=== PATIENT | female | born 1940 | race Caucasian/White ===

== ENCOUNTER 2017-03-04 11:36 | Emergency (ER) | payer OTHER ==
[~2017-03-04] VITALS: Ht 170.2 cm; Wt 81.0 kg
[~2017-03-04 11:36] MED LIST: ACET325T96 PO; ASPEC325 PO; ATOR10TA82 PO; FRRG PO; IBUP-103 PO
[2017-03-04 11:45] VITALS: TEMP 36.7; Ht 170.2 cm; Wt 81.0 kg
[2017-03-04] MEDS ORDERED: ASPI81TA28 PO (11:59)
--- NOTE | 2017-03-04 12:07 | EMERGENCY ROOM VISIT NOTE ---
History Report prepared by Alonso: Paramjit Gamboa Under the Supervision of: Dr. Zachariah Rodriguez M.D. First contact with patient: 11:58 Chief Complaint: NOSE BLEED (MINOR) Stated Complaint: RECURRENT NOSE BLEEDS History of Present Illness The patient is a 77 year old female who presents to the Emergency Room with complaints of a left nostril nose bleed that started around 0415 this morning. She does have a history of nose bleeds, and says she had a really bad one on February 03. The patient presents to the ED with packing in her left nares. The patient was seen at the [facility] ED this morning, and was told to call an ENT doctor, but the ENT could not see the patient for 3 days. The patient was told that she is going to need to be cauterized. She says that she came here because the packing was bothering her. She states that she is not bleeding currently, but there is blood going down her throat. She states that she has never used Afrin before. She denies any recent cold symptoms, but she does note that she is having a bit of discomfort from the pollen outside. The patient takes Aspirin daily. Source of History: patient Onset: 5 this morning Position: nose (left nostril) Quality: other (nose bleed) Timing: other (persistent) Note: Associated symptoms: Denies any recent cold symptoms, but is having discomfort from pollen outside. Review of Systems All systems have been listed, reviewed, and are negative other than those previously mentioned. Please see Additional Medical History Sheet. Past Medical & Surgical Medical Problems: (1) Nasal bleeding Surgical Problems: (1) History of knee replacement (2) Hx of tubal ligation Family History FH: Alzheimer's disease Stroke Social History Smoking Status: Never Smoker Smokeless Tobacco Use: No Alcohol Use: none Marital Status: Housing Status: lives with family Occupation Status: retired Current/Historical Medications Scheduled Aspirin (Aspirin Ec), 81 MG PO DAILY Atorvastatin (Lipitor), 10 MG PO QPM Scheduled PRN Acetaminophen Tab (Tylenol), 650 MG PO Q6 PRN for Pain Ibuprofen Tab (Advil), 400 MG PO DAILY PRN for PRN Allergies Coded Allergies: No Known Drug Allergy (Unverified Allergy, Unknown, NKDA, 01/14/15) Physical Exam Vital Signs Date Time Temp Pulse Resp B/P Pulse Ox O2 Delivery O2 Flow Rate FiO2 03/04/17 13:20 66 16 176/92 96 03/04/17 11:45 36.7 85 18 146/101 95 Room Air Physical Exam GENERAL: Patient awake, alert, oriented x 3. Patient follows commands. Patient does not appear toxic. Patient is adequately hydrated and well- nourished. SKIN: No erythema, pallor, cyanosis or rash HEENT: Normal head, pupils equal, reactive to light and accommodation. Ears normal. Patient had a foam tampon packing in her left nostril that was long term sticking out. It was gently removed and no bleeding was seen. There was a questionable small bleeding site on the Kiesselbach's plexus. No blood in posterior pharynx. Neck: Without adenopathy, no neck vein distention. EXTREMITIES: No signs of trauma. No pedal or pretibial edema. No calf or thigh tenderness. Medical Decision & Procedures Medications Administered Medications (Trade) Dose Ordered Sig/Genevieve Route Start Time Stop Time Status Last Admin Dose Admin Oxymetazoline HCl (Afrin 0.05% Nasal [place]) 1 sprays NOW ONCE NA 03/04/17 12:15 03/04/17 12:16 DC 03/04/17 12:25 1 SPRAYS ED Course 1200: Past medical records reviewed. The patient was evaluated in room C7. A complete history and physical examination was performed. 1215: Ordered Afrin 0.05% Nasal [place] 1 sprays NA. 1310: I reevaluated the patient and she has no current bleeding, and there is no blood in the posterior pharynx. The patient verbally expressed understanding and agreement of the treatment plan. The patient will be discharged. Medical Decision Nurses notes reviewed. Medical history sheet reviewed. Differential diagnosis includes but is not limited to: epistaxis, anemia. The patient had no bleeding while here in the ED but she was given Afrin spray in the left nostril. Small ulcer was noted on Kiesselbach's plexus but it is not bleeding. After a lengthy observation the patient was discharged with no further bleeding. The patient was encouraged to use Afrin again if bleeding resumes. Impression Primary Impression: Epistaxis Scribe Attestation The scribe's documentation has been prepared under my direction and personally reviewed by me in its entirety. I confirm that the note above accurately reflects all work, treatment, procedures, and medical decision making performed by me. Departure Information Dispostion Home / Self-Care Referrals Ken Sebastian M.D. (PCP) Patient Instructions ED [place], My [facility] Additional Instructions 2 puffs of Afrin in the left nostril and use a nasal clip if bleeding resumes. Return here if bleeding continues despite the Afrin. Try not to cough or sneeze or do anything that increases pressure in your head.
[2017-03-04] MEDS ORDERED: OXYMETAZOLINE HCL 0.05% NA SPR 15 ML BTL ONE (12:15)
[2017-03-04 13:20] VITALS: BP 176/92; PULSE 66; O2SAT 96
== END 2017-03-04 13:21 | disposition home or self-care (01) ==
LOC: C.EDB 11:37 → C.EDC 13:21
DX: R04.0 Epistaxis (principal); Z79.82 Long term (current) use of aspirin; Z96.659 Presence of unspecified artificial knee joint; Z82.49 Family history of ischemic heart disease and other diseases of the circulatory system

== ENCOUNTER 2017-03-08 13:45 | Emergency (ER) | payer OTHER ==
[~2017-03-08] VITALS: Ht 170.2 cm; Wt 70.2 kg
[~2017-03-08 13:45] MED LIST changes: -ASPEC325 PO; +ASPI81TA28 PO; -FRRG PO
[2017-03-08 13:47] VITALS: TEMP 36.7; Ht 170.2 cm; Wt 70.2 kg
[2017-03-08] MEDS ORDERED: SODIUM CHLORIDE 0.9% 1000ML 1,000 ML IV STA (14:17)
[2017-03-08 14:49] LABS: HEMATOCRIT 40.3 % (37-47); MEAN CELL VOLUME 92.9 fL (80-100); MEAN CORPUSCULAR HEMOGLOBIN 30.6 pg (25-34); MEAN PLATELET VOLUME 9.6 fL (7.4-10.4); PLATELET COUNT 189 K/uL (130-400); RED BLOOD COUNT 4.34 M/uL (4.2-5.4); WHITE BLOOD COUNT 4.61 K/uL (4.8-10.8)
[2017-03-08 15:02] LABS: PROTHROMBIN TIME (PATIENT) 10.2 SECONDS (9.0-12.0)
[2017-03-08 15:10] LABS: BUN/CREATININE RATIO 14.4 (10-20); CALCIUM 8.9 mg/dl (8.5-10.1); CREATININE 1.2 mg/dl (0.60-1.20); POTASSIUM 4.1 mmol/L (3.5-5.1)
[2017-03-08] MEDS ORDERED: SILVER NITR/POTASSIUM NITRATE APPLICATOR EXT STA (15:19)
--- NOTE | 2017-03-08 15:37 | EMERGENCY ROOM VISIT NOTE ---
History First contact with patient: 14:06 Chief Complaint: NOSE BLEED (MINOR) Stated Complaint: NOSEBLEED History of Present Illness The patient is a 77 year old female who presents to the Emergency Room via private vehicle accompanied by with complaints of "nose bleeding". The patient states that February 03 she began with a nosebleed that was nontraumatic in nature. She states that she has had 2 other small incidences of nosebleeds until this past Tuesday. She does bleed that spontaneously began and was seen here in the emergency department. At that time and Afrin trial was initiated, and nose clamp with success of hemostasis. She was doing well until yesterday around 3 PM, she began a left-sided nosebleed again use the Afrin clamp which achieved hemostasis. Today while at a [employer] lunch, she began with epistaxis on the same side. She then decided to come here for further evaluation. She's been using a humidifier at night, and the house is heated with baseboard water heat. She take an aspirin daily, but has since stopped this this past . She denies any other anticoagulant use. She denies any lightheadedness, dizziness or trauma to the nose. Review of Systems A complete 10-point Review of Systems was discussed with the patient, with pertinent positives and negatives listed in the History of Present Illness. All remaining Review of Systems questions can be considered negative unless otherwise specified. Past Medical/Surgical History Medical Problems: (1) Nasal bleeding Surgical Problems: (1) History of knee replacement (2) Hx of tubal ligation Family History FH: Alzheimer's disease Stroke Social History Smoking Status: Never Smoker Alcohol Use: none Marital Status: Housing Status: lives with family Occupation Status: retired Current/Historical Medications Scheduled Atorvastatin (Lipitor), 10 MG PO QPM Scheduled PRN Ibuprofen Tab (Advil), 400 MG PO DAILY PRN for PRN Allergies Coded Allergies: No Known Drug Allergy (Unverified Allergy, Unknown, NKDA, 01/14/15) Physical Exam Vital Signs Date Time Temp Pulse Resp B/P Pulse Ox O2 Delivery O2 Flow Rate FiO2 03/08/17 13:47 36.7 68 18 143/87 94 Room Air Physical Exam VITAL SIGNS - Vital signs and nursing notes were reviewed. Patient is afebrile , hypertensive at 143/87, non-tachycardic and saturating well on room air 94%. GENERAL -77-year-old female appearing her stated age who is in no acute distress. Communicates well with provider and answers questions appropriately. SKIN - Without rashes. No petechial rashes. HEAD - NC/AT. EYES - PERRL with EOMI bilaterally. Sclera anicteric. Palpebral conjunctiva pink and moist with no injection noted. No hyphema. EARS - No deformities of external structures noted on gross examination bilaterally. No blood extravasating from the external ear canals. NOSE - Midline and without cyanosis. There is dried blood noted to the left near. Septum midline without deviation or septal hematoma noted. No evidence of trauma to the nose. MOUTH/OROPHARYNX - Without perioral cyanosis. Buccal mucosa pink and moist and without leukoplakia. No blood in the posterior pharynx. No evidence of trauma to the mouth. NECK - Neck with FROM. Supple to palpation. [] lymphadenopathy noted. No nuchal rigidity. Medical Decision & Procedures Laboratory Results 03/08/17 14:36 03/08/17 14:36 Test 03/08/17 14:36 Red Blood Count 4.34 M/uL (4.2-5.4) Mean Corpuscular Volume 92.9 fL (80-100) Mean Corpuscular Hemoglobin 30.6 pg (25-34) Mean Corpuscular Hemoglobin Concent 33.0 g/dl (32-36) RDW Standard Deviation 45.2 fL (36.4-46.3) RDW Coefficient of Variation 13.2 % (11.5-14.5) Mean Platelet Volume 9.6 fL (7.4-10.4) Prothrombin Time 10.2 SECONDS (9.0-12.0) Prothromb Time International Ratio 1.0 (0.9-1.1) Activated Partial Thromboplast Time 26.3 SECONDS (21.0-31.0) Partial Thromboplastin Ratio 1.0 Anion Gap 5.0 mmol/L (3-11) Est Creatinine Clear Calc Drug Dose 39.4 ml/min Estimated GFR () 51.2 Estimated GFR (Non- 44.2 BUN/Creatinine Ratio 14.4 (10-20) Calcium Level 8.9 mg/dl (8.5-10.1) Medical Decision Patient was seen and evaluated as above. After obtaining a thorough history and physical examination I did elect to obtain basic blood work on the patient as this was a repeat visit for continued nosebleeds. This was to evaluate for platelet count as well as other potential quite a lot of these. This revealed a slight decrease in white blood cell count, no anemia. Platelet count was normal. No significant abnormalities noted to the PRP. Different modalities of treatment were discussed with the patient. She currently has no bleeding from the nose. I did elect to have her try blow her nose, which potentiated a large epistaxis from the left naris. At this time benefits versus risk of different hemostatic methods was discussed with the patient, and it was then identified to use chemical cautery. 1 silver nitrate stick was then obtained, and the region was identified. Patient provide consent, and this was Cauterized. Patient tolerated this very well, with adequate hemostasis. She was then monitored for a period of 15-20 minutes without any recurrent bleeding. Patient seemed very satisfied with this modality treatment. She was provided with a number of an ENT specialist of which she is to follow-up with her family doctor. She was educated upon today's findings, was educated upon worrisome symptoms which to return, was educated upon the use of nasal saline, as well as Afrin and nose clamp for breakthrough nosebleeds, and was discharged home with in good condition. In evaluation treatment this patient following differential diagnoses were entertained: Nasal trauma, anterior epistaxis, posterior epistaxis, septal hematoma, no blood dyscrasia, among others. Impression Primary Impression: Anterior epistaxis Departure Information Dispostion Home / Self-Care Condition GOOD Referrals Ken Sebastian M.D. (PCP) Oscar Pedroza D.O. Patient Instructions My [facility] Additional Instructions You have been treated in the Emergency Department today for your Nose Bleed ( Epistaxis). As we discussed you're nose leading has been cauterized. This area will be sensitive, it is recommended you do not blow your nose for the next 3 days. Do NOT blow your nose for the next few days. This can result in recurrence of your nosebleed. You should consider using a humidifier to help moisten the air and decrease instances of nosebleeds. You can use [id number] saline nasal sprays to help moisten the nasal mucosa and decrease instances of nosebleeds. As we discussed the Afrin nasal spray and clamp is a good alternative when you experience nosebleeds to attempt to stop the bleeding. If the bleeding would persist for 15 minutes and is a large flow please return to the emergency department. I have provided the number for an footwear sales representative of which you may feel free to call first thing tomorrow morning to schedule follow-up regarding your recurrent nosebleeds. Lab work today did not reveal any emergent findings. As with any trip to the Emergency Department, you should follow-up with your Primary Care Provider from today's visit. Return to the emergency department if your symptoms persist despite treatment plan outlined above or if the following symptoms occur: uncontrollable nosebleed , dizziness, lightheadedness, pre-syncope, or re-bleed. Please return to the emergency department with any new/concerning symptoms.
[2017-03-08 16:02] VITALS: BP 156/105; PULSE 61; O2SAT 95
== END 2017-03-08 16:02 | disposition home or self-care (01) ==
LOC: C.EDB 13:46 → C.EDC 16:02
DX: R04.0 Epistaxis (principal); Z82.49 Family history of ischemic heart disease and other diseases of the circulatory system; Z79.899 Other long term (current) drug therapy